=== PATIENT | male | born 1990 | race Caucasian/White ===

== ENCOUNTER 2017-01-20 11:15 | Emergency (ER) | payer SELFPAY ==
[~2017-01-20] VITALS: Ht 167.6 cm; Wt 68.0 kg
[2017-01-20] MEDS ORDERED: IBUPROFEN 800MG TABLET PO ONE (12:45)
[2017-01-20 12:59] VITALS: BP 139/89
== END 2017-01-20 14:38 | disposition home or self-care (01) ==
LOC: ER 14:24
DX: R51 Headache (principal); F12.10 Cannabis abuse, uncomplicated; F17.200 Nicotine dependence, unspecified, uncomplicated
CPT/HCPCS: 99282